=== PATIENT | female | born 1960 ===

== ENCOUNTER 2023-03-18 09:00 | Outpatient (RCR) | payer BC, SELFPAY | END 2023-03-18 23:59 | disposition home or self-care (01) | LOC: CR 09:00 | PROVIDERS: Visit Provider Internal Medicine Cardiovascular Disease | DX: I50.23 Acute on chronic systolic (congestive) heart failure (principal); I50.1 Left ventricular failure, unspecified; Z51.89 Encounter for other specified aftercare | CPT/HCPCS: S9472 ==

== ENCOUNTER 2023-04-18 12:39 | Outpatient (RCR) | payer BC, SELFPAY | END 2023-04-18 23:59 | disposition home or self-care (01) | LOC: CR 12:39 | PROVIDERS: Visit Provider Internal Medicine Cardiovascular Disease | DX: I50.1 Left ventricular failure, unspecified (principal); Z51.89 Encounter for other specified aftercare | CPT/HCPCS: S9472 ==

== ENCOUNTER 2023-05-13 10:09 | Outpatient (RCR) | payer BC, SELFPAY | END 2023-05-19 23:59 | disposition home or self-care (01) | LOC: CR 10:09 | PROVIDERS: Visit Provider Internal Medicine Cardiovascular Disease | DX: I50.1 Left ventricular failure, unspecified (principal); I50.22 Chronic systolic (congestive) heart failure; Z51.89 Encounter for other specified aftercare | CPT/HCPCS: S9472 ==

== ENCOUNTER 2023-06-17 09:56 | Outpatient (RCR) | payer BC, SELFPAY | END 2023-06-18 23:59 | disposition home or self-care (01) | LOC: CR 09:56 | PROVIDERS: Visit Provider Internal Medicine Cardiovascular Disease | DX: I50.23 Acute on chronic systolic (congestive) heart failure (principal); Z51.89 Encounter for other specified aftercare | CPT/HCPCS: S9472 ==

== ENCOUNTER 2023-07-15 09:45 | Outpatient (RCR) | payer BC, SELFPAY | END 2023-07-19 23:59 | disposition home or self-care (01) | LOC: CR 09:45 | PROVIDERS: Visit Provider Internal Medicine Cardiovascular Disease | DX: I50.23 Acute on chronic systolic (congestive) heart failure (principal); Z51.89 Encounter for other specified aftercare | CPT/HCPCS: S9472 ==

== ENCOUNTER 2023-08-08 09:35 | Outpatient (RCR) | payer BC, SELFPAY | END 2023-08-18 23:59 | disposition home or self-care (01) | LOC: CR 09:35 | PROVIDERS: Visit Provider Internal Medicine Cardiovascular Disease | DX: I50.23 Acute on chronic systolic (congestive) heart failure (principal); Z51.89 Encounter for other specified aftercare | CPT/HCPCS: S9472 ==